=== PATIENT | male | born 1995 | race Caucasian/White ===

== ENCOUNTER 2018-08-02 19:29 | Emergency (ER) | payer OTHER ==
[~2018-08-02] VITALS: Ht 152.4 cm; Wt 99.8 kg
[2018-08-02 19:38] VITALS: BP 136/80
--- NOTE | 2018-08-02 19:41 | NUR ---
PT AMBULATORY TO ER FARHAT IN STABLE CONDITION W/ STEADY GAIT.
--- NOTE | 2018-08-02 20:01 | NUR ---
PT TAKEN TO BED 1
--- NOTE | 2018-08-02 20:09 | NUR ---
PT PRESENT TO ED DUE TO PUNCTURE WOUND SP DOG BITE WHILE WALKING NEAR [facility] AT AROUND 1830;NO ACTIVE BLEEDING NOTED;GAUZE APPLIED TO PUNCTURE WOUND;PT AAOX 4; NO ACUTE DISTRESS NOTED AT THIS TIME;NEEDS ATTENDED;SAFETY MEASURES INSTITUTED; ER WILL BE NOTIFIED.
[2018-08-02] MEDS ORDERED: KETOROLAC 60 MG/2 ML VIAL IM ONE (22:35)
[2018-08-02 23:07] VITALS: BP 136/80
--- NOTE | 2018-08-02 23:07 | NUR ---
Patient discharged with v/s stable. Written and verbal after care instructions given and explained. Patient alert, oriented and verbalized understanding of instructions. Ambulatory with steady gait. All questions addressed prior to discharge. ID band removed. Patient advised to follow up with PMD. Rx of MOTRIN was given. Patient educated on indication of medication including possible reaction and side effects. Opportunity to ask questions provided and answered.
== END 2018-08-02 23:07 | disposition home or self-care (01) ==
LOC: MED 19:29
DX: S61.452A Open bite of left hand, initial encounter (principal); W54.0XXA Bitten by dog, initial encounter; Y93.89 Activity, other specified; Y92.89 Other specified places as the place of occurrence of the external cause; Y99.8 Other external cause status
CPT/HCPCS: 12001; 73130; 96372; 99284; J1885